=== PATIENT | male | born 1960 | race Caucasian/White ===

== ENCOUNTER 2022-03-13 16:23 | Inpatient (IN) | payer OTHER ==
[2022-03-13 16:49] VITALS: BMI 25.9
[2022-03-13] MEDS ORDERED: hydrOXYzine PAMOATE 25 MG CAPSULE (FP) PO PRN (17:21)
[2022-03-13] MEDS ORDERED: MAGNESIUM HYDROX 2400MG/30ML ORAL SUSPENSION 30 ML CUP PO PRN (17:21)
[2022-03-13] MEDS ORDERED: LOPERAMIDE HCL 2 MG CAPSULE PO PRN (17:21)
[2022-03-13] MEDS ORDERED: P-EPHED 60MG/TRIPROLIDI 2.5MG TABLET PO PRN (17:21)
[2022-03-13] MEDS ORDERED: ACETAMINOPHEN 325 MG TABLET (FP) PO PRN (17:21)
[2022-03-13] MEDS ORDERED: MAG HYDROX/AL HYDROX/SIMETH 30 ML UNIT-DOSE CUP PO PRN (17:21)
[2022-03-13] MEDS ORDERED: MAGNESIUM CITRATE 300 ML BOTTLE PO PRN (17:21)
[2022-03-13] MEDS ORDERED: guaiFENesin 200 MG/10 ML 10 ML UNIT-DOSE CUPS PO PRN (17:21)
[2022-03-13] MEDS ORDERED: IBUPROFEN 400 MG TABLET (FP) PO ONE (19:22)
[2022-03-13] MEDS: IBUPROFEN 400 MG TABLET (FP) PO PRN (19:23)
[2022-03-13] MEDS: MELATONIN 5 MG TABLETS PO PRN (22:35)
[2022-03-13] MEDS: THIAMINE HCL 100 MG TABLET (FP) PO SCH (22:37)
[2022-03-14] MEDS: PRENATAL VITAMINS W/ FOLIC ACID TABLET (FP) PO SCH (10:17)
[2022-03-14] MEDS: IBUPROFEN 400 MG TABLET (FP) PO PRN ×2 (10:17→18:28)
[2022-03-14 18:38] LABS: HEMATOCRIT 39.6 % (35.4-49); HEMOGLOBIN 13.1 GM/dL (11.7-16.9); MCH 30.9 pg (25.7-33.7); MCHC 33.1 g/dl (32.0-35.9); MEAN CELL VOLUME 93.4 fl (80-96); MEAN PLT VOLUME 10.3 fl (7.5-11.1); PLATELET COUNT 178 10^3/uL (134-434); RBC 4.24 M/mm3 (4.00-5.60); RDW 14.4 % (11.9-15.9); WHITE BLOOD COUNT 3.9 K/mm3 (4.0-10.0)
[2022-03-14 18:41] LABS: ALBUMIN 3.4 g/dl (3.4-5.0); BLOOD UREA NITROGEN 14.8 mg/dL (7-18)
[2022-03-14 18:44] LABS: CREATININE 0.9 mg/dL (0.55-1.3)
[2022-03-14 18:46] LABS: BILIRUBIN,TOTAL 0.5 mg/dL (0.2-1); TOT PROT 6.3 g/dl (6.4-8.2)
[2022-03-14] MEDS: THIAMINE HCL 100 MG TABLET (FP) PO SCH (22:07)
[2022-03-15] MEDS: IBUPROFEN 400 MG TABLET (FP) PO PRN ×3 (04:15→21:20)
[2022-03-15] MEDS: PRENATAL VITAMINS W/ FOLIC ACID TABLET (FP) PO SCH (09:33)
[2022-03-15 10:24] LABS: PH,URINE 6.5 (5.0-8.0); URINE APPEARANCE CLEAR; URINE BILIRUBIN NEGATIVE (NEGATIVE); URINE COLOR YELLOW; URINE GLUCOSE (UA) NEGATIVE (NEGATIVE); URINE KETONE NEGATIVE (NEGATIVE); URINE LEUK ESTERASE NEGATIVE (NEGATIVE); URINE NITRITE NEGATIVE (NEGATIVE); URINE PROTEIN NEGATIVE (NEGATIVE); URINE UROBILINOGEN 0.2 mg/dL (0.2-1.0)
[2022-03-15] MEDS: THIAMINE HCL 100 MG TABLET (FP) PO SCH (21:19)
[2022-03-16] MEDS: PRENATAL VITAMINS W/ FOLIC ACID TABLET (FP) PO SCH (09:38)
[2022-03-16] MEDS: THIAMINE HCL 100 MG TABLET (FP) PO SCH (21:08)
[2022-03-17] MEDS: PRENATAL VITAMINS W/ FOLIC ACID TABLET (FP) PO SCH (09:52)
[2022-03-17] MEDS: LIDOCAINE 5% TOPICAL PATCH TP SCH (15:35)
[2022-03-17] MEDS: THIAMINE HCL 100 MG TABLET (FP) PO SCH (21:13)
[2022-03-17] MEDS: LIDOCAINE PATCH REMOVAL MC SCH (22:12)
[2022-03-18] MEDS: LIDOCAINE 5% TOPICAL PATCH TP SCH (09:04)
[2022-03-18] MEDS: PRENATAL VITAMINS W/ FOLIC ACID TABLET (FP) PO SCH (09:04)
[2022-03-18] MEDS: LIDOCAINE PATCH REMOVAL MC SCH (21:05)
[2022-03-18] MEDS: THIAMINE HCL 100 MG TABLET (FP) PO SCH (21:05)
[2022-03-19] MEDS: LIDOCAINE 5% TOPICAL PATCH TP SCH (09:46)
[2022-03-19] MEDS: PRENATAL VITAMINS W/ FOLIC ACID TABLET (FP) PO SCH (09:46)
[2022-03-19] MEDS: COLLOIDAL OATMEAL 1 BAR EACH TP PRN (09:48)
[2022-03-19] MEDS: LIDOCAINE PATCH REMOVAL MC SCH (21:11)
[2022-03-19] MEDS: THIAMINE HCL 100 MG TABLET (FP) PO SCH (21:11)
[2022-03-19] MEDS: MELATONIN 5 MG TABLETS PO PRN (21:11)
[2022-03-20] MEDS: PRENATAL VITAMINS W/ FOLIC ACID TABLET (FP) PO SCH (09:45)
[2022-03-20] MEDS: LIDOCAINE 5% TOPICAL PATCH TP SCH (09:45)
[2022-03-20] MEDS: THIAMINE HCL 100 MG TABLET (FP) PO SCH (21:39)
[2022-03-20] MEDS: LIDOCAINE PATCH REMOVAL MC SCH (21:39)
[2022-03-21] MEDS: PRENATAL VITAMINS W/ FOLIC ACID TABLET (FP) PO SCH (10:10)
[2022-03-21] MEDS: LIDOCAINE 5% TOPICAL PATCH TP SCH (10:10)
[2022-03-21] MEDS: THIAMINE HCL 100 MG TABLET (FP) PO SCH (21:37)
[2022-03-21] MEDS: LIDOCAINE PATCH REMOVAL MC SCH (21:37)
[2022-03-22] MEDS: PRENATAL VITAMINS W/ FOLIC ACID TABLET (FP) PO SCH (09:56)
[2022-03-22] MEDS: LIDOCAINE 5% TOPICAL PATCH TP SCH (09:56)
[2022-03-22] MEDS: THIAMINE HCL 100 MG TABLET (FP) PO SCH (21:57)
[2022-03-22] MEDS: LIDOCAINE PATCH REMOVAL MC SCH (21:57)
[2022-03-23] MEDS: COLLOIDAL OATMEAL 1 BAR EACH TP PRN (07:49)
[2022-03-23] MEDS: PRENATAL VITAMINS W/ FOLIC ACID TABLET (FP) PO SCH (10:17)
[2022-03-23] MEDS: LIDOCAINE 5% TOPICAL PATCH TP SCH (10:18)
[2022-03-23] MEDS: LIDOCAINE PATCH REMOVAL MC SCH (21:38)
[2022-03-23] MEDS: THIAMINE HCL 100 MG TABLET (FP) PO SCH (21:38)
[2022-03-24] MEDS: IBUPROFEN 400 MG TABLET (FP) PO PRN (06:12)
[2022-03-24] MEDS: PRENATAL VITAMINS W/ FOLIC ACID TABLET (FP) PO SCH (09:44)
[2022-03-24] MEDS: LIDOCAINE 5% TOPICAL PATCH TP SCH (09:45)
[2022-03-24] MEDS: LIDOCAINE PATCH REMOVAL MC SCH (21:24)
[2022-03-24] MEDS: THIAMINE HCL 100 MG TABLET (FP) PO SCH (21:24)
[2022-03-25] MEDS: PRENATAL VITAMINS W/ FOLIC ACID TABLET (FP) PO SCH (09:58)
[2022-03-25] MEDS: LIDOCAINE 5% TOPICAL PATCH TP SCH (09:58)
[2022-03-25] MEDS: LIDOCAINE PATCH REMOVAL MC SCH (21:38)
[2022-03-25] MEDS: THIAMINE HCL 100 MG TABLET (FP) PO SCH (21:38)
[2022-03-26] MEDS: IBUPROFEN 400 MG TABLET (FP) PO PRN (06:07)
[2022-03-26] MEDS: PRENATAL VITAMINS W/ FOLIC ACID TABLET (FP) PO SCH (09:48)
[2022-03-26] MEDS: LIDOCAINE 5% TOPICAL PATCH TP SCH (09:48)
[2022-03-26] MEDS: THIAMINE HCL 100 MG TABLET (FP) PO SCH (21:39)
[2022-03-26] MEDS: LIDOCAINE PATCH REMOVAL MC SCH (21:39)
[2022-03-27] MEDS: PRENATAL VITAMINS W/ FOLIC ACID TABLET (FP) PO SCH (09:53)
[2022-03-27] MEDS: LIDOCAINE 5% TOPICAL PATCH TP SCH (09:54)
[2022-03-27] MEDS: LIDOCAINE PATCH REMOVAL MC SCH (21:29)
[2022-03-27] MEDS: THIAMINE HCL 100 MG TABLET (FP) PO SCH (21:29)
[2022-03-28] MEDS: LIDOCAINE 5% TOPICAL PATCH TP SCH (09:43)
[2022-03-28] MEDS: PRENATAL VITAMINS W/ FOLIC ACID TABLET (FP) PO SCH (09:43)
[2022-03-28] MEDS: LIDOCAINE PATCH REMOVAL MC SCH (21:49)
[2022-03-28] MEDS: THIAMINE HCL 100 MG TABLET (FP) PO SCH (21:51)
[2022-03-29] MEDS: PRENATAL VITAMINS W/ FOLIC ACID TABLET (FP) PO SCH (09:08)
[2022-03-29] MEDS: LIDOCAINE 5% TOPICAL PATCH TP SCH (09:08)
[2022-03-29] MEDS: LIDOCAINE PATCH REMOVAL MC SCH (21:38)
[2022-03-29] MEDS: THIAMINE HCL 100 MG TABLET (FP) PO SCH (21:38)
[2022-03-30] MEDS: PRENATAL VITAMINS W/ FOLIC ACID TABLET (FP) PO SCH (09:36)
[2022-03-30] MEDS: LIDOCAINE 5% TOPICAL PATCH TP SCH (09:37)
[2022-03-30] MEDS: BENZOCAINE 28 GM HEMORRHOIDAL OINTMENT RC PRN (15:28)
[2022-03-30] MEDS: THIAMINE HCL 100 MG TABLET (FP) PO SCH (21:31)
[2022-03-30] MEDS: LIDOCAINE PATCH REMOVAL MC SCH (21:31)
[2022-03-31] MEDS: PRENATAL VITAMINS W/ FOLIC ACID TABLET (FP) PO SCH (09:55)
[2022-03-31] MEDS: LIDOCAINE 5% TOPICAL PATCH TP SCH (09:55)
[2022-03-31] MEDS: LIDOCAINE PATCH REMOVAL MC SCH (21:55)
[2022-03-31] MEDS: THIAMINE HCL 100 MG TABLET (FP) PO SCH (21:55)
[2022-04-01] MEDS: PRENATAL VITAMINS W/ FOLIC ACID TABLET (FP) PO SCH (09:50)
[2022-04-01] MEDS: LIDOCAINE 5% TOPICAL PATCH TP SCH (09:50)
[2022-04-01] MEDS: THIAMINE HCL 100 MG TABLET (FP) PO SCH (21:35)
[2022-04-01] MEDS: LIDOCAINE PATCH REMOVAL MC SCH (21:35)
[2022-04-02] MEDS: PRENATAL VITAMINS W/ FOLIC ACID TABLET (FP) PO SCH (09:38)
[2022-04-02] MEDS: LIDOCAINE 5% TOPICAL PATCH TP SCH (09:38)
[2022-04-02] MEDS: LIDOCAINE PATCH REMOVAL MC SCH (21:36)
[2022-04-02] MEDS: THIAMINE HCL 100 MG TABLET (FP) PO SCH (21:36)
[2022-04-03] MEDS: LIDOCAINE 5% TOPICAL PATCH TP SCH (09:35)
[2022-04-03] MEDS: PRENATAL VITAMINS W/ FOLIC ACID TABLET (FP) PO SCH (09:35)
[2022-04-03] MEDS: BENZOCAINE 28 GM HEMORRHOIDAL OINTMENT RC PRN (09:36)
[2022-04-03] MEDS: LIDOCAINE PATCH REMOVAL MC SCH (21:33)
[2022-04-03] MEDS: THIAMINE HCL 100 MG TABLET (FP) PO SCH (21:33)
[2022-04-04] MEDS: LIDOCAINE 5% TOPICAL PATCH TP SCH (09:44)
[2022-04-04] MEDS: PRENATAL VITAMINS W/ FOLIC ACID TABLET (FP) PO SCH (09:44)
[2022-04-04] MEDS: BENZOCAINE 28 GM HEMORRHOIDAL OINTMENT RC PRN (09:45)
[2022-04-04] MEDS: COLLOIDAL OATMEAL 1 BAR EACH TP PRN (12:00)
[2022-04-04] MEDS: THIAMINE HCL 100 MG TABLET (FP) PO SCH (22:17)
[2022-04-04] MEDS: LIDOCAINE PATCH REMOVAL MC SCH (22:19)
[2022-04-05] MEDS: LIDOCAINE 5% TOPICAL PATCH TP SCH (09:32)
[2022-04-05] MEDS: PRENATAL VITAMINS W/ FOLIC ACID TABLET (FP) PO SCH (09:32)
[2022-04-05] MEDS: LIDOCAINE PATCH REMOVAL MC SCH (21:49)
[2022-04-05] MEDS: THIAMINE HCL 100 MG TABLET (FP) PO SCH (21:49)
[2022-04-06] MEDS: LIDOCAINE 5% TOPICAL PATCH TP SCH (10:35)
[2022-04-06] MEDS: PRENATAL VITAMINS W/ FOLIC ACID TABLET (FP) PO SCH (10:36)
[2022-04-06] MEDS: THIAMINE HCL 100 MG TABLET (FP) PO SCH (21:36)
[2022-04-06] MEDS: LIDOCAINE PATCH REMOVAL MC SCH (21:36)
[2022-04-07] MEDS: LIDOCAINE 5% TOPICAL PATCH TP SCH (10:12)
[2022-04-07] MEDS: PRENATAL VITAMINS W/ FOLIC ACID TABLET (FP) PO SCH (10:12)
[2022-04-07] MEDS: THIAMINE HCL 100 MG TABLET (FP) PO SCH (21:33)
[2022-04-07] MEDS: LIDOCAINE PATCH REMOVAL MC SCH (21:33)
[2022-04-08 06:52] VITALS: BP 115/78; PULSE 80; TEMP 97.7
[2022-04-08] MEDS: LIDOCAINE 5% TOPICAL PATCH TP SCH (09:20)
[2022-04-08] MEDS: PRENATAL VITAMINS W/ FOLIC ACID TABLET (FP) PO SCH (09:20)
== END 2022-04-08 09:20 | disposition home or self-care (01) | DRG 772 ==
LOC: YASAS 16:23 → Y3E 19:30
PROVIDERS: ADMIT Allergy & Immunology; ATTEND Psychiatry & Neurology Pain Medicine
PROC: HZ42ZZZ Group Counseling for Substance Abuse Treatment, Cognitive-Behavioral (ICD-10-PCS; principal; 2022-03-13)
DX: F10.20 Alcohol dependence, uncomplicated (principal); Z87.891 Personal history of nicotine dependence; Z28.310 Unvaccinated for COVID-19; Z88.5 Allergy status to narcotic agent; Z88.0 Allergy status to penicillin; Z91.011 Allergy to milk products
CPT/HCPCS: 36415; 71046-TC-FY; 80053; 81003; 82962; 85027; 86780; C9803-CS; U0003; U0005

== ENCOUNTER 2022-06-30 21:46 | Inpatient (IN) | payer OTHER ==
[2022-06-30 23:59] VITALS: BMI 25.6
[2022-07-01] MEDS ORDERED: ACETAMINOPHEN 325 MG TABLET (FP) PO PRN ×2 (00:22)
[2022-07-01] MEDS ORDERED: MAG HYDROX/AL HYDROX/SIMETH 30 ML UNIT-DOSE CUP PO PRN (00:22)
[2022-07-01] MEDS ORDERED: ONDANSETRON *ODT* 4 MG TABLET SL PRN (00:22)
[2022-07-01] MEDS ORDERED: P-EPHED 60MG/TRIPROLIDI 2.5MG TABLET PO PRN (00:22)
[2022-07-01] MEDS ORDERED: METHOCARBAMOL 500 MG TABLET PO PRN (00:22)
[2022-07-01] MEDS ORDERED: BISMUTH SUBSALICYLATE 524 MG/30 ML PO PRN (00:22)
[2022-07-01] MEDS ORDERED: DICYCLOMINE HCL 10 MG CAPSULE PO PRN (00:22)
[2022-07-01] MEDS ORDERED: IBUPROFEN 600 MG TABLET (FP) PO PRN (00:22)
[2022-07-01] MEDS ORDERED: MAGNESIUM CITRATE 300 ML BOTTLE PO PRN (00:22)
[2022-07-01] MEDS ORDERED: NALOXONE HCL (KLOXXADO) 8 MG SPRAY NS PRN (00:22)
[2022-07-01] MEDS ORDERED: guaiFENesin 200 MG/10 ML 10 ML UNIT-DOSE CUPS PO PRN (00:22)
[2022-07-01] MEDS ORDERED: LOPERAMIDE HCL 2 MG CAPSULE PO PRN (00:22)
[2022-07-01] MEDS ORDERED: BENZOCAINE/MENTHOL (CHLORASEPTIC ) LOZENGE MM PRN (00:22)
[2022-07-01] MEDS ORDERED: MAGNESIUM HYDROX 2400MG/30ML ORAL SUSPENSION 30 ML CUP PO PRN (00:22)
[2022-07-01] MEDS ORDERED: IBUPROFEN 400 MG TABLET (FP) PO PRN (00:22)
[2022-07-01] MEDS ORDERED: hydrOXYzine PAMOATE 25 MG CAPSULE (FP) PO PRN (00:22)
[2022-07-01 06:51] VITALS: RESP 18
[2022-07-01 09:18] VITALS: BP 117/71; PULSE 68; TEMP 97.5
[2022-07-01] MEDS ORDERED: PRENATAL VITAMINS W/ FOLIC ACID TABLET (FP) PO SCH (10:00)
[2022-07-01] MEDS ORDERED: MELATONIN 5 MG TABLETS PO SCH (22:00)
[2022-07-01] MEDS ORDERED: THIAMINE HCL 100 MG TABLET (FP) PO SCH (22:00)
== END 2022-07-01 10:27 | disposition left against medical advice (07) | DRG 770 ==
LOC: YASAS 21:46 → Y3N 23:58 → UNDOADMIN 23:58 → Y3N 23:59 → UNDODISIN 07-01 10:27
PROVIDERS: ADMIT Allergy & Immunology; ATTEND Surgery
PROC: HZ2ZZZZ Detoxification Services for Substance Abuse Treatment (ICD-10-PCS; principal; 2022-06-30)
DX: F10.230 Alcohol dependence with withdrawal, uncomplicated (principal); F14.20 Cocaine dependence, uncomplicated; F19.24 Other psychoactive substance dependence with psychoactive substance-induced mood disorder; Z87.891 Personal history of nicotine dependence; Z28.310 Unvaccinated for COVID-19; Z28.9 Immunization not carried out for unspecified reason; Z88.0 Allergy status to penicillin; Z91.011 Allergy to milk products
CPT/HCPCS: 87811; C9803-CS; U0003; U0005